=== PATIENT | male | born 1990 | race American Indian/Alaskan Native ===

== ENCOUNTER 2016-10-22 11:55 | Emergency (ER) | payer SELFPAY ==
[2016-10-22 12:53] VITALS: BP 126/81
== END 2016-10-22 19:15 | disposition left against medical advice (07) ==
LOC: ED 11:55
DX: M54.5 Low back pain (principal); F17.200 Nicotine dependence, unspecified, uncomplicated; Z53.21 Procedure and treatment not carried out due to patient leaving prior to being seen by health care provider